=== PATIENT | male | born 1950 | race Caucasian/White ===

== ENCOUNTER 2017-03-08 15:17 | Observation (INO) | payer MEDICARE, OTHER ==
[2017-03-02 14:22] LABS: ASCORBIC ACID (UR NOT ORDER) NEG (NEG); BILIRUBIN, URINE NEGATIVE (NEG); KETONE, URINE NEGATIVE (NEG); LEUKOCYTE ESTERASE(NOT OR LARGE (NEG)
[2017-03-02 14:57] LABS: HEMATOCRIT 48.5 % (40.0-51.0)
[2017-03-02 15:15] LABS: BUN (BLOOD UREA NITROGEN) 29 MG/DL (6-23); CALCIUM, SERUM 10.2 MG/DL (8.5-10.4); CHLORIDE, SERUM 107 MMOL/L (96-112); CO2 (CARBON DIOXIDE) 23 MMOL/L (24-34); CREATININE 1.71 MG/DL (0.70-1.30); GFR AFRICAN AMERICAN 47 ML/MIN (>=60); GFR NON AFRICAN AMERICAN 40 ML/MIN (>=60); GLUCOSE, SERUM 124 MG/DL (60-99); POTASSIUM, SERUM 5.1 MMOL/L (3.5-5.3); SODIUM, SERUM 138 MMOL/L (135-148)
[2017-03-03 10:04] LABS: WBC (NOT ORDERED) (RFLEX) > 182 (0-5)
--- NOTE | ~2017-03-08 | OP ---
Record Of Operation [facility] [address] [place]. [address] NAME: ADAM COLINDRES : 46 STATUS : DIS January PAT#: [id number] AGE: 66 ADM/REG DATE : 03/08/17 MR#: [id number] REPORT SERV DATE: 03/11/17 DICTATED BY: ELIGIO LEONARD DATE: 03/11/17 REPORT STATUS : Draft TRANSCRIBED BY: SHAILESH DATE: 03/11/17 DATE OF PROCEDURE: 03/08/2017 TITLE OF OPERATION: 1. Cystourethroscopy. 2. Cystolitholapaxy. 3. Transurethral resection of the prostate. PREOPERATIVE DIAGNOSES: 1. Benign prostatic hypertrophy with obstruction. 2. Bladder stones. POSTOPERATIVE DIAGNOSES: 1. Benign prostatic hypertrophy with obstruction. 2. Bladder stones. INDICATIONS: Mr. Colindres is a 66-year-old male with BPH with obstruction. He has bladder stones. He has symptomatic lower urinary tract symptoms and recurrent infections. He is here for cystolitholapaxy and TURP. ANESTHESIA: General. COMPLICATIONS: None. IMPLANTS: A 24-Moroccan 3-way Fernandez catheter. SPECIMENS: 1. Bladder stone. 2. Prostatic chips. NARRATIVE: The patient was brought to the operating room, identified by his wristband. General anesthesia was induced. Ancef and gentamicin were given for preoperative antibiotics. He was placed in the dorsal lithotomy position, prepped and draped in a sterile fashion. A 22-Moroccan cystoscope was placed into his urethra and into his bladder. The urethra was notable for bilobar hypertrophy with a high-riding bladder neck. There was approximately 3 bladder stones. Total stone volume was approximately 4 cm. Using a 1000 micron holmium laser fiber and a 100-watt laser, the stone was dusted into innumerable small pieces. These pieces were evacuated from the bladder in their entirety. These were sent to pathology for chemical analysis. Once this was performed, the 22-Moroccan cystoscope was removed. A 24-Moroccan resectoscope sheath was placed into the urethra into the bladder with the aid of an obturator. Using a 24-Moroccan loop, the prostate was sequentially resected from the base to the apex, both laterally at the base and the ceiling. Arterial bleeding was controlled with electrocautery. The verumontanum was spared as was the external urinary sphincter. The ureteral orifices were uninjured. All prostatic chips were removed from the bladder and sent to pathology for analysis. There was no perforation. The prostate was resected down to the capsule at all levels. The scope was then removed. A 24-Moroccan 3-way Record Of Operation [address] [address] NAME: ADAM COLINDRES : 46 STATUS : DIS January PAT#: [id number] AGE: 66 ADM/REG DATE : 03/08/17 MR#: [id number] REPORT SERV DATE: 03/11/17 DICTATED BY: ELIGIO LEONARD DATE: 03/11/17 REPORT STATUS : Draft TRANSCRIBED BY: SHAILESH DATE: 03/11/17 Fernandez catheter was placed. The balloon was inflated with 40 mL of sterile water. CBI was initiated. Traction was placed. The patient was awoken from anesthesia and transferred to the recovery room in stable condition. There were no complications. He will be admitted for observation and have his Fernandez catheter removed in the morning. KJ/SHAILESH Eligio Leonard MD / [id number] CC: Eligio Leonard MD
[~2017-03-08 15:17] MED LIST: ASA5GR PO; C25; DITRO5 PO; FLOMAX4 PO; GLUCPH PO; LISINOPRIL40 MG PO; LOP100 PO; LOP50 PO; PCET PO; PRAVACHOL40 MG PO; SEPTRA DS1 TAB PO; VITD PO; Z300 PO; ZESTRIL20 MG PO; ZOCOR20 PO
[2017-03-08 22:23] LABS: HEMOGLOBIN 15.3 g/dL (13.6-17.8)
[2017-03-09 05:27] LABS: HEMATOCRIT 42.9 % (40.0-51.0); HEMOGLOBIN 14.9 g/dL (13.6-17.8)
[2017-03-09] MEDS ORDERED: DSS PO (11:47)
[2017-03-09] MEDS ORDERED: PCET PO (11:49)
[2017-03-09] MEDS ORDERED: BACTRIM DS1 TAB PO (11:49)
[2017-03-14 02:12] LABS: STONE COMPOSITION TWO DNR (())
== END 2017-03-09 15:46 | disposition home or self-care (01) ==
LOC: 4SO 15:17
PROVIDERS: Urology
PROC: 0TCB8ZZ Extirpation of Matter from Bladder, Via Natural or Artificial Opening Endoscopic (ICD-10-PCS; principal; 2017-03-08 16:15)
PROC: 0VT08ZZ Resection of Prostate, Via Natural or Artificial Opening Endoscopic (ICD-10-PCS; 2017-03-08 16:15)
DX: N40.1 Benign prostatic hyperplasia with lower urinary tract symptoms (principal); N13.8 Other obstructive and reflux uropathy; N21.0 Calculus in bladder; I10 Essential (primary) hypertension; I25.10 Atherosclerotic heart disease of native coronary artery without angina pectoris; Z88.6 Allergy status to analgesic agent; Z79.82 Long term (current) use of aspirin; Z79.84 Long term (current) use of oral hypoglycemic drugs; Z79.2 Long term (current) use of antibiotics; Z79.899 Other long term (current) drug therapy
CPT/HCPCS: 52318; 52601; 80048; 81001; 82365; 82962 ×2; 84295; 85014 ×3; 85018 ×3; 87086; 88305; 88344; 93005; 96374; 96376; A9270 ×6; G0378; J0690 ×2; J1580; J2250; J2405; J2710; J3010; Q9967